=== PATIENT | female | born 1990 | race American Indian/Alaskan Native ===

== ENCOUNTER 2021-12-25 09:09 | Emergency (ER) | payer SELFPAY ==
[2021-12-25 09:42] VITALS: BP 124/81
[2021-12-25] MEDS ORDERED: HYDROcodone/ACETAMINOPHEN 5-325 MG TAB PO ONE (10:54)
--- NOTE | 2021-12-25 11:15 | XRay Report ---
CHEST 1 VIEW 12/25/2021 10:09 AM INDICATION / CLINICAL INFORMATION: chest pain, sob. COMPARISON: None. FINDINGS: SUPPORT DEVICES: None. HEART / MEDIASTINUM: Normal. LUNGS / PLEURA: No acute pulmonary or pleural findings. No pneumothorax. ADDITIONAL FINDINGS: No significant additional findings. IMPRESSION: 1. No acute findings. Signer Name: Lan Liriano MD Signed: 12/25/2021 11:11 AM Workstation Name: [id number]
--- NOTE | 2021-12-25 11:26 | Emergency Department Report ---
ED Chest Pain HPI - General Chief Complaint: Chest Pain Stated Complaint: CHEST PAIN Time Seen by Provider: 12/25/21 10:26 Source: patient, EMS Mode of arrival: Stretcher Limitations: No Limitations - History of Present Illness Initial Comments: 31-year-old female with no significant medical history presents with chest pain. Patient reports pain in his substernal chest that started on Thursday while at work. She describes pain as very sharp and CVA, worse with inspiration, worse with movement. 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 She denies cough cold congestion, no fever chills, no orthopnea, no shortness of breath, no activity intolerance, pain does not radiate to her extremities, Complaint: chest pain Severity scale (0 -10): 9 Consistency: constant, intermittent Improves With: remaining still Worsens With: inspiration, movement re: denies: nausea, vomting, diaphoresis, dyspnea Other Symptoms: denies: cough, rash, acid taste in mouth, leg swelling Treatments Prior to Arrival: none - Related Data On Oral Contraceptives: No Previous Rx's Medication Instructions Recorded Last Taken Type traMADoL [Ultram] 50 mg PO Q6HR PRN #14 tablet 06/02/14 Unknown Rx Cyclobenzaprine [Flexeril] 10 mg PO TID PRN #20 12/25/21 Unknown Rx Ibuprofen [Motrin 600 MG tab] 600 mg PO Q8H PRN #30 tablet 12/25/21 Unknown Rx Allergies Allergy/AdvReac Type Severity Reaction Status Date / Time No Known Allergies Allergy Verified 12/25/21 09:43 Heart Score - HEART Score History: Slightly suspicious EKG: Normal Age: < 45 Risk factors: No known risk factors Troponin: < normal limit HEART Score: 0 - EKG Read Time Time EKG Completed: 14:00 EKG Read Time: 14:05 - Critical Actions Critical Actions: 0-3 pts:0.9-1.7%risk of adverse cardiac event.Candidate for discharge ED Review of Systems ROS: Stated complaint: CHEST PAIN Other details as noted in HPI Constitutional: denies: chills, diaphoresis ENT: as per HPI Respiratory: denies: cough, shortness of breath Cardiovascular: chest pain. denies: palpitations, syncope Gastrointestinal: denies: abdominal pain, nausea, vomiting Genitourinary: denies: urgency, frequency Musculoskeletal: denies: back pain Skin: denies: rash Neurological: denies: headache, weakness, numbness ED Past Medical Hx - Social History Smoking Status: Current Every Day Smoker Substance Use Type: Alcohol - Medications Home Medications: Home Medications Medication Instructions Recorded Confirmed Last Taken Type traMADoL [Ultram] 50 mg PO Q6HR PRN #14 tablet 06/02/14 Unknown Rx Cyclobenzaprine [Flexeril] 10 mg PO TID PRN #20 12/25/21 Unknown Rx Ibuprofen [Motrin 600 MG tab] 600 mg PO Q8H PRN #30 tablet 12/25/21 Unknown Rx ED Physical Exam - General Limitations: No Limitations General appearance: alert, in no apparent distress - Head Head exam: Present: atraumatic - Eye Eye exam: Present: normal appearance, PERRL Pupils: Present: normal accommodation - ENT ENT exam: Present: normal exam, normal orophraynx - Neck Neck exam: Present: normal inspection - Respiratory Respiratory exam: Present: normal lung sounds bilaterally, chest wall tenderness. Absent: respiratory distress, wheezes - Cardiovascular Cardiovascular Exam: Present: regular rate, normal rhythm - GI/Abdominal GI/Abdominal exam: Present: soft. Absent: distended - Extremities Exam Extremities exam: Present: normal inspection, full ROM. Absent: tenderness - Back Exam Back exam: Present: normal inspection, full ROM - Neurological Exam Neurological exam: Present: alert, oriented X3, CN II-XII intact, normal gait. Absent: motor sensory deficit - Psychiatric Psychiatric exam: Present: normal affect, normal mood - Skin Skin exam: Present: warm, dry, intact, normal color ED Course Vital Signs 12/25/21 09:41 Pulse Rate 87 Blood Pressure 124/81 [Left] O2 Sat by Pulse 99 Oximetry ED Medical Decision Making - EKG Data Interpretation: no acute changes 12/25/21 20:46 EKG interpretation taken Sinus bradycardia at 55, nonspecific T wave abnormality no acute STEMI - Medical Decision Making Negative chest x-ray, negative troponin Wells PE score is low, heart score 0, vital signs stable symptoms have improved during ED course, vital signs are stable, chest pain is without nausea dizziness hypotension weakness. Patient remained stable nontoxic-appearing, afebrile, ambulating steadily without assistance. Gone over ED findings with patient as well as plan for follow-up. Also discussed return precautions with patient, all questions and concerns addressed. Patient is stable to be discharged follow-up outpatient. Audio voice dictation device used, hence the chart might contain some dictation errors, mispronunciations, wrong spelling and wrong verbiage. Critical care attestation.: If time is entered above; I have spent that time in minutes in the direct care of this critically ill patient, excluding procedure time. ED Disposition Clinical Impression: Costochondritis, Chest pain Disposition: HOME / SELF CARE / HOMELESS Is pt being admited?: No Does the pt Need Aspirin: No Condition: Stable Instructions: Costochondritis, [id number] Prescriptions: Cyclobenzaprine [Flexeril] 10 mg PO TID PRN #20 PRN Reason: Muscle Spasm Ibuprofen [Motrin 600 MG tab] 600 mg PO Q8H PRN #30 tablet PRN Reason: Pain Referrals: ISSA FREEMAN MD [Primary Care Provider] - 3-5 Days IVANIA QIU MD [Staff Physician] - 3-5 Days Forms: Work/School Release Form(ED)
--- NOTE | 2021-12-27 13:25 | Electrocardiograph Report ---
[facility] Test Date: 2021-12-25 Test Time: 14:33:04 Pat Name: YURI RODRIGUEZ Department: Room: Gender: F Grinder Lap: SEVEN : 1990 Requested By: JIE JACOB Order Number: [id number] Reading MD: Brii Marmolejo Measurements Intervals [place] Rate: 55 P: 69 OK: 148 QRS: 83 QRSD: 75 T: 72 QT: 435 QTc: 416 Interpretive Statements Sinus bradycardia Nonspecific T abnrm, anterolateral leads No previous ECG available for comparison Electronically Signed On 12-27-2021 13:25:09 EDT by Brii Marmolejo
== END 2021-12-25 15:14 | disposition home or self-care (01) ==
LOC: ED 09:09
DX: R07.9 Chest pain, unspecified (principal); M94.0 Chondrocostal junction syndrome [Tietze]; F17.200 Nicotine dependence, unspecified, uncomplicated; F10.20 Alcohol dependence, uncomplicated
CPT/HCPCS: 36415; 71045; 84484; 93005; 99284